=== PATIENT | female | born 1980 | race Caucasian/White ===

== ENCOUNTER 2017-03-02 19:13 | Emergency (ER) | payer BC ==
[~2017-03-02] VITALS: Ht 162.6 cm; Wt 149.5 kg
[2017-03-02 20:02] LABS: HEMATOCRIT 36.8 % (36.0-46.0); MCH 29.2 PG (29.0-34.0); MCHC 32.9 G/DL (30.0-36.0); MCV 88.9 FL (83-99); MEAN PLAT.VOLUME 10.2 uM^3 (9.5-12.4); PLATELET COUNT 279 K/uL (156-360); RBC DIS.WIDTH-CV 12.7 % (11.8-14.6); RBC DIS.WIDTH-SD 41.3 % (39-53); RED BLOOD COUNT 4.14 M/uL (3.80-5.20); WHITE BLOOD COUNT 10.3 K/uL (4.1-10.2)
[2017-03-02 20:11] LABS: CHLORIDE 110 mEq/L (99-109); SODIUM 139 mEq/L (136-147)
[2017-03-02 20:13] LABS: GLUCOSE 222 mg/dL (70-99)
[2017-03-02 20:15] LABS: ANION GAP 8 MEQ/L (2-14); TOTAL BILIRUBIN 0.3 mg/dL (0.0-1.0)
[2017-03-02 20:17] LABS: ALKALINE PHOSPHATASE 67 IU/L (3-129)
[2017-03-02 20:18] LABS: UREA NITROGEN (BUN) 18 mg/dL (9-23)
[2017-03-02 20:19] LABS: ADD MIUA? YES; BILIRUBIN NEGATIVE; BLOOD LARGE; COLOR YELLOW ((YELLOW)); GLUCOSE (STRIP) NEGATIVE; KETONES NEGATIVE; LEUKOCYTES SMALL; NITRITE NEGATIVE; PROTEIN (STRIP) 30; SPECIFIC GRAVITY 1.018 (1.000-1.030); UROBILINOGEN 0.2 MG/DL (0.2-1.0)
[2017-03-02 20:21] LABS: LIPASE 11 U/L (1.0-51.0)
[2017-03-02 20:22] LABS: GFR ESTIMATE (CALCULATED) > 59 mL/min/
[2017-03-02 20:23] LABS: BACTERIA RARE /HPF; EPITHELIAL CELLS 1+ /HPF; MUCUS TRACE /LPF; RED BLOOD CELLS 40-50 /HPF (0-5); UCUL ADDED? YES; WHITE BLOOD CELLS 15-20 /HPF (0-5)
[2017-03-02 20:26] LABS: QUANTITATIVE HCG < 4.0 MIU/ML
[2017-03-02 23:16] VITALS: BP 135/81
== END 2017-03-02 23:19 | disposition home or self-care (01) ==
LOC: EME 19:13
DX: R60.0 Localized edema (principal); E11.22 Type 2 diabetes mellitus with diabetic chronic kidney disease; N18.9 Chronic kidney disease, unspecified; Z76.82 Awaiting organ transplant status; E78.5 Hyperlipidemia, unspecified
CPT/HCPCS: 80053; 81003; 83690; 84702; 85027; 87086; 93971; 99281; 99285